=== PATIENT | female | born 1980 | race Caucasian/White ===

== ENCOUNTER 2018-02-21 15:59 | Emergency (ER) | payer MEDICAID ==
[~2018-02-21] VITALS: Ht 137.2 cm; Wt 50.1 kg
[2018-02-21 16:01] VITALS: BP 106/67
[2018-02-21] MEDS ORDERED: LIDOCAINE-MPF 1%, 5ML ONE (16:23)
[2018-02-21] MEDS ORDERED: LIDOCAINE-MPF 1%, 5ML INFIL ONE (16:30)
== END 2018-02-21 17:05 | disposition home or self-care (01) ==
LOC: ED 16:59
DX: L03.114 Cellulitis of left upper limb (principal)
CPT/HCPCS: 10060; 99283

== ENCOUNTER 2018-02-23 11:46 | Emergency (ER) | payer MEDICAID ==
[~2018-02-23] VITALS: Ht 137.2 cm; Wt 49.2 kg
[2018-02-23 11:57] VITALS: BP 104/64
== END 2018-02-23 13:56 | disposition home or self-care (01) ==
LOC: ED 13:45
DX: L02.412 Cutaneous abscess of left axilla (principal); Z98.890 Other specified postprocedural states
CPT/HCPCS: 99283

== ENCOUNTER 2021-01-11 11:04 | Emergency (ER) | payer MEDICAID ==
[~2021-01-11] VITALS: Ht 137.2 cm; Wt 53.9 kg
[2021-01-11 11:12] VITALS: BP 114/70
--- NOTE | 2021-01-11 11:24 | NUR ---
first contact with pt. pt c/o l shoulder/arm/neck pain. pt stated "i think it is muscular problem, but i don't know" pt denies any trauma. pt's aox4. resps even and unlabored.
[2021-01-11] MEDS ORDERED: KETOROLAC 30 MG/1 ML IM ONE (11:30)
[2021-01-11] MEDS ORDERED: KETOROLAC 30 MG/1 ML ONE (11:36)
--- NOTE | 2021-01-11 11:47 | NUR ---
PT MEDICATED PER EMAR FOR PAIN. PT TOLERATED WELL.
== END 2021-01-11 13:06 | disposition home or self-care (01) ==
LOC: ED 12:41
DX: M77.8 Other enthesopathies, not elsewhere classified (principal); F17.210 Nicotine dependence, cigarettes, uncomplicated
CPT/HCPCS: 73030; 96372; 99283; J1885